=== PATIENT | female | born 1985 ===

== ENCOUNTER 2020-06-22 23:50 | Observation (INO) ==
[2020-06-23] MEDS ORDERED: DEXTROSE 50% 25 GM/50 ML VIAL IV PRN ×2 (01:49)
[2020-06-23] MEDS ORDERED: ACETAMINOPHEN 325 MG TABLET PO PRN (01:49)
[2020-06-23] MEDS ORDERED: GLUCAGON 1 MG VIAL IM PRN (01:49)
[2020-06-23] MEDS: MORPHINE 4 MG/1 ML VIAL IV PRN (02:28)
[2020-06-23 06:00] LABS: Basophils % 0.5 % (0.0-0.8); Eosinophils % 0.7 % (0.00-10.9); Hematocrit 35.9 VOL% (35.7-47.0); Hemoglobin 12.2 GM/DL (12.0-16.0); Immature Granulocytes % 0.2 %; Immature Granulocytes Absolute 0.01 #; Lymphocytes # 2.9 10*3/uL (1.4-4.0); Mean Corpuscular Volume 93.7 FL (87-102); Mean Platelet Volume 8.3 FL (9.6-12.0); Monocytes % 8.6 % (1.7-12.7); Platelet Count 189 T/CUMM (130-400); Red Blood Count 3.83 MC/CUMM (3.8-5.5); Red Cell Distribution Width 12.8 % (9.3-17.3); White Blood Count 6.1 T/CUMM (4-12)
[2020-06-23 06:37] LABS: Albumin 2.9 G/DL (3.4-5.0); Bilirubin,Total 0.9 MG/DL (0.2-1.0); Calcium 8.9 MG/DL (8.5-10.1); Osmolality,Calculated 278.3 MOS/KG (273-304); Potassium 3.9 MMOL/L (3.5-5.1); Total Protein 5.7 G/DL (6.4-8.2)
[2020-06-23] MEDS: INSULIN REGULAR 100 UNIT/ML SUBCUT SCH ×4 (07:36→21:16)
[2020-06-23] MEDS: APIXABAN 5 MG TABLET PO SCH ×2 (08:57→21:16)
[2020-06-23] MEDS: PANTOPRAZOLE 40 MG TABLET PO SCH (08:57)
[2020-06-23] MEDS ORDERED: SIMVASTATIN 20 MG TABLET PO SCH (21:00)
[2020-06-24] MEDS: MORPHINE 4 MG/1 ML VIAL IV PRN (01:56)
[2020-06-24] MEDS ORDERED: LORazepam 2 MG/1 ML VIAL IV ONE (02:17)
[2020-06-24 06:11] LABS: Basophils % 0.4 % (0.0-0.8); Eosinophils # 0.1 10*3/uL (0.0-0.87); Eosinophils % 1.1 % (0.00-10.9); Hematocrit 37.1 VOL% (35.7-47.0); Hemoglobin 12.5 GM/DL (12.0-16.0); Immature Granulocytes % 0.2 %; Immature Granulocytes Absolute 0.01 #; Lymphocytes # 2.9 10*3/uL (1.4-4.0); Mean Corpuscular HGB Conc 33.7 GM/DL (32-36); Mean Corpuscular Volume 93.5 FL (87-102); Mean Platelet Volume 8.3 FL (9.6-12.0); Monocytes % 7.9 % (1.7-12.7); Neutrophils % 38.4 % (38.7-73.9); Platelet Count 214 T/CUMM (130-400); Red Blood Count 3.97 MC/CUMM (3.8-5.5); Red Cell Distribution Width 12.5 % (9.3-17.3); White Blood Count 5.6 T/CUMM (4-12)
[2020-06-24 06:24] LABS: Calcium 8.9 MG/DL (8.5-10.1); Osmolality,Calculated 279.3 MOS/KG (273-304); Potassium 3.5 MMOL/L (3.5-5.1)
[2020-06-24 06:49] LABS: Eosinophils 2 % (0-10); Lymphocytes 42 % (20-55); Platelet Estimate Adequate; Segmented Neutrophils 45 % (50-85); Total Cells Counted 100
[2020-06-24 06:50] LABS: Hypochromasia Slight
[2020-06-24] MEDS: INSULIN REGULAR 100 UNIT/ML SUBCUT SCH ×2 (09:15→11:47)
[2020-06-24] MEDS: PANTOPRAZOLE 40 MG TABLET PO SCH (09:16)
[2020-06-24] MEDS: APIXABAN 5 MG TABLET PO SCH (09:16)
[2020-06-24 11:47] VITALS: BP 99/58
== END 2020-06-24 15:50 | disposition home or self-care (01) ==
LOC: N.TELES → SUATTDRO 06-23 01:22
PROVIDERS: ADMIT Internal Medicine; ATTEND Internal Medicine